=== PATIENT | male | born 1970 | race African-American/Black ===

== ENCOUNTER 2021-09-23 10:32 | Emergency (ER) | payer SELFPAY ==
[2021-09-23 10:41] VITALS: BP 139/101; PULSE 88; RESP 20; TEMP 36.8; O2SAT 100
--- NOTE | 2021-09-23 11:01 | ED.MALEGU ---
HPI - Male Genitourinary General Chief complaint: Urogenital-Male Stated complaint: URINARY PROBLEMS Time Seen by Provider: 09/23/21 11:01 Source: patient Mode of arrival: ambulatory Limitations: no limitations History of Present Illness HPI Narrative: Mr. Hurtado is a 51-year-old male patient presenting to the clinic today with complaints of urinary issues. He reports that he had intercourse with a new partner on and developed some tingling like discomfort in his penis after the intercourse was completed. He reports that he was wearing a condom however it did break. He is concerned about getting some kind of STI. He denies any symptoms currently. He denies any penile discharge. He denies any fever, chills, testicular pain, abdominal pain or flank pain. Patient is requesting STI treatment in the clinic today. Related Data Home Medications Medication Instructions Recorded Confirmed sildenafil 100 mg tablet (Viagra) mg 09/23/21 Allergies Allergy/AdvReac Type Severity Reaction Status Date / Time No Known Allergies Allergy Verified 09/23/21 10:37 Review of Systems Review of Systems: Pertinent positives per HPI. Patient denies any fever, chills, rash, headache, visual changes, dizziness, cough, runny nose, sore throat, shortness of breath, chest pain, palpitations, nausea, vomiting, diarrhea, constipation, abdominal pain, or any urinary issues. PMFSH Comments At the time of my signature, I reviewed and agree with the nursing past medical, surgical, social, and family history. There is no relevant family history pertinent to the patient complaint. Exam Narrative: General: Well-developed, well nourished, in no apparent distress. Head: Normocephalic, atraumatic. Cardio: Regular rate and rhythm, s1 and s2 normal, no murmur appreciated. Resp: Clear to auscultation bilaterally, no rhonchi, rales, wheezing or rubs. Abdomen: Soft, pliable, bowel sounds present in all quadrants, non-tender to palpation, no organomegly, no CVAT tenderness. : Deferred Course Course Emergency Course: Portions of this record may have been created with voice recognition software. Level of Care: Express Care Visit Vital Signs Vital signs: Vital Signs Temperature 36.8 C 09/23/21 10:41 Pulse Rate 88 09/23/21 10:41 Respiratory Rate 20 09/23/21 10:41 Blood Pressure 139/101 H 09/23/21 10:41 Pulse Oximetry 100 09/23/21 10:41 Temperature 36.8 C 09/23/21 10:41 Pulse Rate 88 09/23/21 10:41 Respiratory Rate 20 09/23/21 10:41 Blood Pressure 139/101 H 09/23/21 10:41 Pulse Oximetry 100 09/23/21 10:41 Vital signs reviewed MDM - Male Genitourinary MDM Narrative Medical decision making narrative: At the time of visit patient is resting comfortably on the exam table. He is requesting STD testing/treatment. Urinalysis was negative for any sign of urinary tract infection. Dirty urine sent for chlamydia, gonorrhea, trichomonas testing. I will give him a prescription for some doxycycline and give him a 500 mg dose of Rocephin IM in the clinic today. Anticipatory guidance and supportive measures were discussed with the patient he voiced understanding of discharge instructions and agrees to treatment plan. Differential Diagnosis Differential diagnosis: Likely urinary tract infection and other (STI) Discharge Plan Discharge Clinical Impression: High risk sexual behavior, Possible exposure to STD Patient Disposition: Home, Self-Care Condition: Stable Instructions: Antibiotic Form, Sexually Transmitted Diseases (ED), Safe Sex Practices (ED) Additional Instructions: UA was negative for any sign of urinary tract infection Will send urinalysis out for chlamydia, gonorrhea, trichomonas testing Rocephin 500 mg IM given in the clinic today Doxycycline 100 mg twice daily x7 days Increase fluids and stay well-hydrated Avoid any sexual intercourse until completed with treatment and you get
[2021-09-23] MEDS: cefTRIAXone 500 MG, LIDOCAINE HCL 1% LOCAL INJ 1 ML IM (11:19)
== END 2021-09-23 11:42 | disposition home or self-care (01) ==
PROVIDERS: Emergency Provider Nurse Practitioner Family
DX: Z72.51 High risk heterosexual behavior (principal); Z20.2 Contact with and (suspected) exposure to infections with a predominantly sexual mode of transmission
CPT/HCPCS: 81003; 87491; 87591; 87661; 96372; 99213; G0463; J0696